=== PATIENT | male | born 1965 | race Caucasian/White ===

== ENCOUNTER 2017-10-15 18:02 | Emergency (ER) | payer MEDICARE, MEDICAID ==
[~2017-10-15] VITALS: Ht 175.3 cm; Wt 67.3 kg
[~2017-10-15 18:02] MED LIST: BUSP15TA14 PO; CHOL10002 PO; FLUO20CA39 PO; HYDR50CA PO; NICO-731 TOP; PANT40TA4 PO; QUET200T PO; QUET50TA PO
[2017-10-15 18:18] VITALS: BP 135/98
[2017-10-15] MEDS ORDERED: TETanus/Pertussis (Acell)/Diphther VAC/PF (Tdap-Adult) 0.5ml syringe IM ONE (21:20)
[2017-10-15] MEDS ORDERED: ibuprofen tablet 400 MG TABLET PO ONE (21:20)
[2017-10-16] MEDS ORDERED: PANT20TA3 PO (19:59)
[2017-10-16] MEDS ORDERED: ONDA4TAB9 SL (19:59)
== END 2017-10-15 23:44 | disposition home or self-care (01) ==
LOC: ER 18:03
DX: S62.502A Fracture of unspecified phalanx of left thumb, initial encounter for closed fracture (principal); F17.200 Nicotine dependence, unspecified, uncomplicated; M54.9 Dorsalgia, unspecified; I10 Essential (primary) hypertension; K21.9 Gastro-esophageal reflux disease without esophagitis; G89.29 Other chronic pain; Z59.0 Homelessness; Z89.511 Acquired absence of right leg below knee; Z88.5 Allergy status to narcotic agent; Z88.0 Allergy status to penicillin; Z79.899 Other long term (current) drug therapy; Y04.8XXA Assault by other bodily force, initial encounter; Y93.89 Activity, other specified; Y92.89 Other specified places as the place of occurrence of the external cause; Y99.8 Other external cause status
CPT/HCPCS: 29130; 70450; 72100; 72131; 73140; 73552; 90471; 90715; 99284

== ENCOUNTER 2017-10-16 11:15 | Emergency (ER) | payer MEDICARE, MEDICAID ==
[2017-10-16] MEDS ORDERED: ondansetron/PF 4mg/2ml inj IV ONE ×2 (18:00→18:20)
[2017-10-16] MEDS ORDERED: morphine 4 MG/ML inj SYRINge IV PRN (18:20)
[2017-10-16] MEDS ORDERED: MORPHINE 2MG in 2ml NS syringe IV PRN (18:23)
[2017-10-16 18:46] LABS: BASOPHILS # (AUTO) 0.1 X10'3 (0-0.2); BASOPHILS % (AUTO) 0.5 % (0-1); EOSINOPHILS % (AUTO) 0 % (0-6); HEMATOCRIT 38.7 % (42.0-52.0); HEMOGLOBIN 12.9 g/dl (14.0-17.9); LYMPHOCYTES # (AUTO) 1.2 X10'3 (1.1-4.8); LYMPHOCYTES % (AUTO) 6.4 % (21-51); MEAN CORPUSCULAR HEMOGLOBIN 25.4 PG (27.0-31.0); MEAN CORPUSCULAR HGB CONC 33.3 % (33.0-36.5); MEAN CORPUSCULAR VOLUME 76.3 FL (78-98); MEAN PLATELET VOLUME 7.7 FL (7.4-10.4); MONOCYTES # (AUTO) 1.3 X10'3 (0-0.9); MONOCYTES % (AUTO) 6.7 % (2-12); NEUTROPHILS # (AUTO) 16.5 X10'3 (1.8-7.7); NEUTROPHILS % (AUTO) 86.4 % (42-75); PLATELET COUNT 284 X10'3 (140-440); RED BLOOD COUNT 5.07 X10'6 (4.70-6.10); RED CELL DISTRIBUTION WIDTH 18.4 % (11.5-14.5); WHITE BLOOD COUNT 19.1 X10'3 (4.5-11.0)
[2017-10-16 19:04] LABS: ALANINE AMINOTRANSFERASE 20 U/L (12-78); ALBUMIN 4.2 G/DL (3.4-5.0); ALBUMIN/GLOBULIN RATIO 1.2 (1.1-1.5); ALKALINE PHOSPHATASE 135 IU/L (46-116); ANION GAP 11 (8-16); ASPARTATE AMINO TRANSFERASE 18 U/L (10-37); BILIRUBIN,TOTAL 1.5 MG/DL (0.1-1.0); BLOOD UREA NITROGEN 20 MG/DL (7-18); BUN/CREATININE RATIO 16.7 (5.4-32.0); CALCIUM 8.8 MG/DL (8.5-10.1); CHLORIDE 90 MMOL/L (99-107); GLUCOSE 160 MG/DL (70-104); LIPASE 65 U/L (73-393); SODIUM 139 MMOL/L (135-145); TOTAL PROTEIN 7.8 G/DL (6.4-8.2); eGFR 63 ML/MIN
[2017-10-16 19:15] LABS: POTASSIUM 2.5 MMOL/L (3.5-5.1)
[2017-10-16] MEDS ORDERED: potassium Cl 20 mEq SR tablet PO STA (19:21)
[2017-10-16] MEDS ORDERED: magnesium oxide 400mg tablet PO ONE (19:25)
[2017-10-16 19:55] LABS: PLATELET ESTIMATE NORMAL; POLYCHROMASIA 1+; TARGET CELLS 2+
[2017-10-16] MEDS ORDERED: PANT20TA3 PO (19:59)
[2017-10-16] MEDS ORDERED: ONDA4TAB9 SL (19:59)
[2017-10-16 20:13] VITALS: BP 145/89
== END 2017-10-16 20:15 | disposition home or self-care (01) ==
LOC: ER 11:15
DX: E87.6 Hypokalemia (principal); D72.829 Elevated white blood cell count, unspecified; R11.10 Vomiting, unspecified; I10 Essential (primary) hypertension; K21.9 Gastro-esophageal reflux disease without esophagitis; G89.29 Other chronic pain; M19.90 Unspecified osteoarthritis, unspecified site; Z98.890 Other specified postprocedural states; Z59.0 Homelessness; Z88.0 Allergy status to penicillin; Z88.5 Allergy status to narcotic agent; Z79.899 Other long term (current) drug therapy
CPT/HCPCS: 36415; 80053; 83690; 85025; 96374; 96375; 96376; 99284; J2274; J2405

== ENCOUNTER 2017-10-16 20:49 | Emergency (ER) | payer MEDICARE, MEDICAID ==
[~2017-10-16 20:49] MED LIST changes: +ONDA4TAB9 SL; +PANT20TA3 PO
== END 2017-10-16 21:11 | disposition left against medical advice (07) ==
LOC: ER 20:49
DX: R11.10 Vomiting, unspecified (principal); Z53.21 Procedure and treatment not carried out due to patient leaving prior to being seen by health care provider